=== PATIENT | female | born 2005 | race Hispanic/Latino ===

== ENCOUNTER 2023-12-17 22:13 | Emergency (ER) | payer OTHER ==
[2023-12-18] MEDS ORDERED: Ibuprofen 200 MG TAB ONE (00:38)
== END 2023-12-18 01:03 | disposition home or self-care (01) ==
LOC: CSHERS 22:13
DX: M54.2 Cervicalgia (principal); V89.2XXA Person injured in unspecified motor-vehicle accident, traffic, initial encounter
CPT/HCPCS: 99283